=== PATIENT | male | born 1945 | race Caucasian/White ===

== ENCOUNTER 2017-05-13 13:09 | Emergency (ER) | payer MEDICARE, OTHER ==
[2017-05-13 13:59] LABS: Bilirubin Negative (Negative); Blood, Urine Negative (Negative); Clarity Cloudy (Clear); Glucose, Urine (Dipstick) Negative (Negative); Leukocyte Moderate (Negative); Nitrite Negative (Negative); Protein, Urine (Dipstick) Trace mg/dL (Neg-Trace); pH, Urine 6.5 (5.0-9.0)
[2017-05-13 14:04] LABS: #Basophils 0.1 thou/uL (0.0-0.2); #Eosinphils 0.1 thou/uL (0.0-0.7); #Monocytes 0.7 thou/uL (0.11-0.59); #Neutrophils 6.1 thou/uL (1.40-6.50); %Basophils 0.9 % (0.0-1.0); %Eosinophils 1.1 % (0.0-10.0); %Lymphocytes 13.1 % (21.0-51.0); %Monocytes 8.5 % (0.0-10.0); %Neutrophils 76.5 % (42.0-75.0); Hemoglobin 16.1 g/dL (14.0-18.0); Mean Corpuscular HGB CONC 36.4 g/dL (32.0-36.0); Mean Corpuscular Hemoglobin 31.7 pg (27.0-31.0); Mean Corpuscular Volume 87.1 fl (80.0-94.0); Mean Platelet Volume 8.6 fL (7.4-10.4); Platelet Count 230 thou/uL (130-400); RBC Distribution Width 12.3 % (11.5-14.5); Red Blood Cell (RBC) Count 5.09 mill/uL (4.70-6.10)
[2017-05-13 14:09] LABS: ALT (SGPT) 19 U/L (8-55); AST (SGOT) 15 U/L (5-34); Albumin 4.2 g/dL (3.4-4.8); Anion Gap 12 mmol/L (10-20); BUN (Urea Nitrogen) 27 mg/dL (8.4-25.7); Bilirubin, Total 0.7 mg/dL (0.2-1.2); Calc. Creatinine Clearance 0 mL/min (70-130); Calcium 10.6 mg/dL (7.8-10.44); Carbon Dioxide 28 mmol/L (23-31); Chloride 105 mmol/L (98-107); Estimated GFR-MDRD Greater than 90; Globulin 2.7 g/dL (2.4-3.5); Glucose 162 mg/dL (83-110); Lipase 15 U/L (8-78); Potassium 4.3 mmol/L (3.5-5.1); Protein, Total 6.9 g/dL (5.8-8.1); Sodium 141 mmol/L (136-145)
[2017-05-13 14:11] LABS: Bacteria/HPF 1+ HPF (None Seen); Crystals/HPF 3+ AMORPH URATES HPF (Negative); RBC/HPF None Seen HPF (0-3); Squamous Epithelial 0-3 HPF (0-3); WBC/HPF 21-50 HPF (0-3)
[2017-05-13 14:13] LABS: Alkaline Phosphatase 106 U/L (40-150)
== END 2017-05-13 15:24 | disposition home or self-care (01) ==
LOC: BURERS 13:09
DX: N39.0 Urinary tract infection, site not specified (principal); R10.13 Epigastric pain; I25.10 Atherosclerotic heart disease of native coronary artery without angina pectoris; I25.2 Old myocardial infarction; E11.9 Type 2 diabetes mellitus without complications; E03.9 Hypothyroidism, unspecified; E78.5 Hyperlipidemia, unspecified; I10 Essential (primary) hypertension; Z79.84 Long term (current) use of oral hypoglycemic drugs; Z79.891 Long term (current) use of opiate analgesic; Z79.899 Other long term (current) drug therapy
CPT/HCPCS: 80053; 81003; 81015; 83690; 85025; 99283

== ENCOUNTER 2018-04-28 10:59 | Emergency (ER) | payer MEDICARE, OTHER ==
[2018-04-28 11:52] LABS: #Basophils 0.2 thou/uL (0.0-0.2); #Eosinphils 0.1 thou/uL (0.0-0.7); #Lymphocytes 3.8 thou/uL (1.20-3.40); #Monocytes 0.3 thou/uL (0.11-0.59); #Neutrophils 4.8 thou/uL (1.40-6.50); %Basophils 1.8 % (0.0-1.0); %Eosinophils 1.2 % (0.0-10.0); %Lymphocytes 41.7 % (21.0-51.0); %Monocytes 2.9 % (0.0-10.0); %Neutrophils 52.5 % (42.0-75.0); Hemoglobin 16.7 g/dL (14.0-18.0); Mean Corpuscular HGB CONC 33.7 g/dL (32.0-36.0); Mean Corpuscular Hemoglobin 29.9 pg (27.0-31.0); Mean Corpuscular Volume 88.8 fL (78.0-98.0); Mean Platelet Volume 7.2 fL (7.4-10.4); Platelet Count 245 thou/uL (130-400); RBC Distribution Width 13.2 % (11.5-14.5); Red Blood Cell (RBC) Count 5.57 mill/uL (4.70-6.10); White Blood Cell (WBC) Count 9.1 thou/uL (4.8-10.8)
[2018-04-28 12:09] LABS: ALT (SGPT) 11 U/L (8-55); AST (SGOT) 15 U/L (5-34); Albumin 4.2 g/dL (3.4-4.8); Alkaline Phosphatase 128 U/L (40-150); Anion Gap 15 mmol/L (10-20); BUN (Urea Nitrogen) 27 mg/dL (8.4-25.7); Bilirubin, Total 0.9 mg/dL (0.2-1.2); Calc. Creatinine Clearance 0 mL/min (70-130); Calcium 9.7 mg/dL (7.8-10.44); Carbon Dioxide 23 mmol/L (23-31); Chloride 106 mmol/L (98-107); Estimated GFR-MDRD Greater than 90; Glucose 134 mg/dL (83-110); Potassium 4.2 mmol/L (3.5-5.1); Protein, Total 7.2 g/dL (5.8-8.1); Sodium 140 mmol/L (136-145)
[2018-04-28] MEDS ORDERED: methylPREDNISolone Sod Succ/PF 125 MG/2 ML VIAL ONE (12:19)
[2018-04-28] MEDS ORDERED: Albuterol Sulfate 1.25 MG/3 ML NEB ONE (12:19)
[2018-04-28] MEDS ORDERED: Sodium Chloride 0.9% 100 ML ONE (12:33)
[2018-04-28] MEDS ORDERED: cefTRIAXone\\ROCEPHIN 1 GM VIAL ONE (12:33)
[2018-04-28] MEDS ORDERED: Albuterol Sulfate 2.5 mg/3 ml Neb ONE (12:54)
[2018-04-28] MEDS ORDERED: Azithromycin 250 MG TAB ONE (13:15)
--- NOTE | 2018-04-28 21:32 | RAD ---
CHEST TWO VIEWS: 04/28/18 No prior films were available for comparison. Pleural fluid is present on at least the right and poss ibly the left. Some fluid is seen in the fissures. A linear streak from the left hilum is probably sc arring. There is some increased density in the right base medially. I cannot exclude an infiltrate he re. The heart size is normal. median sternotomy sutures are seen from prior surgery. There is no vasc ular congestion or edema. Old films would be helpful for comparison. IMPRESSION: 1. Pleural effusions, particularly on the right. 2. Possible right basilar infiltrate. POS: HOME
== END 2018-04-28 13:20 | disposition home or self-care (01) ==
LOC: BURERS 10:59
DX: J20.9 Acute bronchitis, unspecified (principal); I25.10 Atherosclerotic heart disease of native coronary artery without angina pectoris; I25.2 Old myocardial infarction; E11.9 Type 2 diabetes mellitus without complications; E03.9 Hypothyroidism, unspecified; E78.5 Hyperlipidemia, unspecified; I10 Essential (primary) hypertension; Z79.899 Other long term (current) drug therapy; Z79.84 Long term (current) use of oral hypoglycemic drugs
CPT/HCPCS: 36415; 71046; 80053; 83605; 83880; 84484; 85025; 87040; 93005; 94640; 94760; 96365; 96375; J0696; J2930; J7050; J7611; J7620

== ENCOUNTER 2019-03-01 14:09 | Inpatient (IN) | payer MEDICARE, OTHER ==
[2019-03-01] MEDS ORDERED: HYDROcodone/Acetaminophen 5/325 mg Tablet PO PRN (22:05)
[2019-03-01] MEDS ORDERED: Gabapentin 300 MG CAP PO PRN (22:05)
[2019-03-01] MEDS ORDERED: Dextrose 50% Abboject 50 ML SYRINGE SLOW IVP PRN (22:17)
[2019-03-01] MEDS ORDERED: Dextrose 5% in Water 1,000 ML IV PRN (22:17)
[2019-03-02 05:59] LABS: ALT (SGPT) 17 U/L (8-55); AST (SGOT) 12 U/L (5-34); Albumin 2.5 g/dL (3.4-4.8); Alkaline Phosphatase 109 U/L (40-110); Anion Gap 12 mmol/L (10-20); BUN (Urea Nitrogen) 39 mg/dL (8.4-25.7); Bilirubin, Total 0.7 mg/dL (0.2-1.2); Calc. Creatinine Clearance 0 mL/min (70-130); Calcium 10.9 mg/dL (7.8-10.44); Carbon Dioxide 28 mmol/L (23-31); Chloride 102 mmol/L (98-107); Estimated GFR-MDRD 61; Globulin 1.5 g/dL (2.4-3.5); Glucose 126 mg/dL (83-110); Potassium 4.3 mmol/L (3.5-5.1); Sodium 138 mmol/L (136-145)
[2019-03-02 06:07] LABS: Mean Corpuscular HGB CONC 32.6 g/dL (32.0-36.0); Mean Corpuscular Hemoglobin 28.9 pg (27.0-31.0); Mean Corpuscular Volume 88.7 fL (78.0-98.0); Mean Platelet Volume 11.4 fL (7.4-10.4); Platelet Count 96 thou/uL (130-400); RBC Distribution Width 15.6 % (11.5-14.5); Red Blood Cell (RBC) Count 3.45 mill/uL (4.70-6.10); White Blood Cell (WBC) Count 2.3 thou/uL (4.8-10.8)
[2019-03-02 06:15] LABS: Manual Diff?? YES
[2019-03-02 06:16] LABS: Anisocytosis SLIGHT = 6-15 cells (100X) (0-5/hpf); Band 9 % (5-11); Eosinophils 1 % (0-10); Hypochromia SLIGHT = 6-15 cells (100X) (0-5/hpf); Large Platelets SLIGHT; Lymphocytes 28 % (21-51); Monocytes 5 % (0-10); Neutrophil 56 % (42-75); Platelet Morphology Comment Appears Decreased
[2019-03-02 06:17] LABS: MDiff Complete? YES
[2019-03-02] MEDS: Floranex Packet PO SCH ×3 (08:43→17:36)
[2019-03-02] MEDS: Fluconazole 100 MG TAB PO SCH (08:43)
[2019-03-02] MEDS: Docusate 100 MG CAP PO SCH ×2 (08:44→23:19)
[2019-03-02] MEDS: Gabapentin 300 MG CAP PO SCH ×3 (08:44→23:19)
[2019-03-02] MEDS: Potassium Chloride 10 MEQ TAB PO SCH (08:46)
[2019-03-02] MEDS ORDERED: AMPHOTERICIN B 50 MG IV SCH (09:00)
[2019-03-02] MEDS ORDERED: Prevnar 13-Val Conj/PF 0.5 ML SYRINGE IM ONE (09:00)
[2019-03-02] MEDS: HumaLOG 300 UNITS/3 ML VIAL SC PRN (12:49)
[2019-03-02] MEDS: DEXTROSE 5% IVPB SCH (13:54)
[2019-03-02] MEDS: WATER IVPB SCH (13:54)
[2019-03-02] MEDS: AMBISOME IVPB SCH (13:54)
[2019-03-02] MEDS ORDERED: Admixture Fee 1 EACH in Dextrose 5% in Water 10 ML FS SCH (14:00)
[2019-03-02] MEDS ORDERED: Ibrutinib [Imbruvica] 420 MG PO SCH (16:00)
[2019-03-02] MEDS: metFORMIN 500 MG TAB PO SCH (17:36)
--- NOTE | 2019-03-03 03:03 | HP ---
CHIEF COMPLAINT: Need for IV antifungal treatment and physical and occupational therapy for generalized weakness. HISTORY OF PRESENT ILLNESS: Mr. Yancey is a 73-year-old male with a history of hypertension, type 2 diabetes, and non-Hodgkin's lymphoma and has been on ibrutinib, followed by Dr. Padron with Oncology in [place], chronic leukopenia, chronic kidney disease stage 3, anemia of chronic disease, and recent enterococcus iliopsoas abscess that was treated with ampicillin at a senior living facility, apparently [facility] per history and then readmitted on February 18 with worsening shortness of breath, hypoxia, chronic dysphagia. He was found with healthcare acquired pneumonia, a large left pleural effusion, hypoxic respiratory failure, and a distal esophageal ring. He also had cryptococcus fungemia. He was evaluated by Dr. jOeda with Infectious Disease for assistance with management and subsequently underwent a thoracentesis with removal of 1.5 L of straw-colored fluid on February 19 for the pleural effusion. GI evaluated the patient while there and performed an EGD with esophageal dilation on February 22. He had an 8 day course of meropenem in-house. He was recommended antifungal consisting of AmBisome [address] Ojeda for approximately 9 days. He has been transferred here to continue that treatment as well as physical and occupational therapy. Before the iliopsoas abscess, he apparently lived independently in his home. It presented with worsening back pain. IR was unable to drain it successfully. After at [facility], he apparently wasn't walking but when he finally did get up to stand, he suffered a fall. This prompted the readmission back to [facility] February 18 through March 01 and found to have fungemia. PAST MEDICAL HISTORY: 1. Fungemia, specifically cryptococcus. 2. Iliopsoas abscess, penicillin sensitive enterococcus, status post aspiration, January 25, 2019, treated with ampicillin. 3. Non-Hodgkin's lymphoma, followed by Dr. Padron in [place] on ibrutinib. 4. Type 2 diabetes. 5. Hypertension.. 6. Healthcare-associated pneumonia. 7. Anemia of chronic disease. 8. Left pleural effusion status post thoracentesis, February 19. Apparently recurrent and had lung drained about a year ago as well. 9. Acute respiratory failure with hypoxia. 10. Acute kidney injury on chronic kidney disease stage 3. 11. Dysphagia status post dilation of distal esophageal ring. 12. Back pain. 13. Sinus bradycardia. PAST SURGICAL HISTORY: 1. Interventional radiology, biopsy deep bone January 23, 2019. 2. Interventional radiology thoracentesis with imaging left February 19, 2019. 3. EGD with esophageal dilation February 22, 2019. ALLERGIES: SULFA. SOCIAL HISTORY: The patient is single. He is a [place] . Prior to his admission to [facility] last month, the patient lived at home independently. He has never smoked and does not drink alcohol or use illicit drugs. FAMILY HISTORY: Non-pertinent. MEDICATIONS: 1. Amphotericin 350 mg IV daily for 9 days. 2. Fluconazole 200 mg four tablets to equal 100 mg daily for 10 days, then two tablets to equal 400 mg total daily and then after eight weeks, we will decrease to 200 mg daily indefinitely for at least 1 year per Infectious Disease. 3. Lactobacillus acidophilus L. Bulgar 100 million cell granules or Floranex 1 packet by mouth 3 times daily with meals for seven days. 4. Pantoprazole 40 mg daily. 5. Acetaminophen 500 mg two p.o. q.6 hours p.r.n. pain. 6. Docusate sodium 100 mg p.o. b.i.d. 7. Gabapentin 300 mg p.o. t.i.d. with an additional 300 mg p.o. t.i.d. p.r.n. 8. Hydrocodone 5/325 two p.o. q.8 hours p.r.n. pain. 9. Metformin 500 mg p.o. q.p.m. with evening meal. 10. Ondansetron 4 mg tablet p.o. q.6 hours p.r.n. nausea. 11. Potassium chloride 10 mEq p.o. daily. 12. Amlodipine 10 mg p.o. daily. REVIEW OF SYSTEMS: A complete 10 system review unable to be performed secondary to the patient's somnolent state at the time of assessment. PHYSICAL EXAMINATION: VITAL SIGNS: Temperature 97.1, pulse 69, respirations 18, O2 saturation 100% on 3 L per nasal cannula, blood pressure 113/58. GENERAL: Well-developed, thin, cachectic-appearing male, who is in no distress. He is supine lying in bed, asleep. I was unable to arouse him more than to mumble softly. Per staff, he was awake and had long therapy sessions today. HEENT: Normocephalic, atraumatic. Pupils equally round and reactive to light and accommodation. Extraocular movements cannot be addressed. Nares are patent without discharge. Poor dentition. NECK: Supple without lymphadenopathy, thyromegaly, JVD, or bruit. HEART: Regular rate and rhythm with normal S1, S2, 2/6 systolic ejection murmur best heard at the left lower sternal border without radiation. ABDOMEN: Positive bowel sounds in all four quadrants. Soft, nontender, nondistended. No masses, guarding, or rebound tenderness. RESPIRATORY: Diminished breath sounds in left lower lobe. No crackles or wheezes. EXTREMITIES: No cyanosis, clubbing, or edema, but atrophic. NEUROLOGIC: Cranial nerves 2 through 12 grossly intact without focal deficits, but notice generalized atrophy and weakness. SKIN: The patient has some well-defined scabbed over around sores to the anterior tibias bilaterally without surrounding erythema or induration. He also appears to have a median sternotomy scar, which does not correspond to the surgical history that I obtained. We will ask family members for clarification. LABORATORY DATA: White count on February 25 2.1, hemoglobin 9, hematocrit 28.4, platelets 165. Sodium 136 on February 27, potassium 4.5, chloride 101, bicarb 31, BUN 44, creatinine 1.33, glucose 126, magnesium 2, calcium 10.5. IMAGIN. The patient had a CT head without contrast on February 18 that showed no acute intracranial abnormality. 2. CT chest without contrast the same day showed acute right lower lobe pneumonia and associated small right pleural effusion and large left pleural effusion with complete left lower lobe collapse/atelectasis. 3. Repeat chest x-ray, February 22 shows small left pleural effusion, decreased since prior study, trace right pleural effusion. Pulmonary vascular congestion. Bibasilar atelectatic changes. 4. X-ray guided fluoroscopy of the esophagus on February 21 showed limited exam without obvious esophageal narrowing or filling defect. Presbyesophagus is noted. 5. CT abdomen and pelvis with contrast February 18 showed a slightly smaller right psoas muscle abscess. ASSESSMENT AND PLAN: 1. Fungemia with cryptococcal bacteremia. The patient has been placed on amphotericin and fluconazole as directed. The amphotericin will be discontinued after 9 days of therapy. The fluconazole dose will be decreased as instructed after 10 days and then again after four weeks per Dr. Ojeda's recommendations. He will be on the fluconazole indefinitely for at least a year with him following outpatient. He is also on probiotic. 2. Healthcare associated pneumonia. The patient has completed meropenem therapy and vancomycin. His most recent chest x-ray showed improvement. 3. Left pleural effusion, status post thoracentesis. Per [facility] records, it appeared to be exudative based on protein ratio greater than 0.5 and a gram- stain culture was unremarkable with an improvement in the chest x-ray post procedure. We will monitor his respiratory status. 4. Dysphagia. The patient has taken very little by mouth while hospitalized here. He did have a speech therapy, bedside swallow examination on February 22 after having the EGD revealing a lower esophageal ring and hiatal hernia. They recommended dysphagia 3 soft and bite size diet and thin liquids, upright at 90 degrees for p.o. intake and remaining upright at least 30 minutes after meals with esophageal dysphagia precautions then include a slick diet, alternating solids and liquids with six smaller more frequent meals with food cut into bite size pieces and to be moistened with juice or gravy, etc. with distant supervision with meals checking outpatient 2-3 times per meal. However, the patient had no appetite today and I will start him on an appetite stimulant. ST eval and treat. 5. Iliopsoas abscess. This was found during his previous admission and was unable to be drained by interventional Radiology. He was on ampicillin via PICC line at the residential, which was planned through March 01 and has appropriately been treated prior to his transfer here. We will control his pain with [place] and gabapentin to the low back. 6. Non-Hodgkin's lymphoma. We spoke with Dr. Ojeda today, who clarified that the patient is to be continued on his ibrutinib, which will be monitored with outpatient oncology, Dr. Padron. We will closely watch his platelet count. 7. Type 2 diabetes. Currently, he is on metformin and we have placed him on Accu-Cheks before meal and at bedtime with hyperglycemia protocol with lispro, mild and bedtime algorithms. 8. Hypertension. The patient is currently on amlodipine. He was previously on lisinopril, but this is being held. We will monitor his blood pressure and treat accordingly. 9. Acute respiratory failure with hypoxia. The patient is currently on 3 L and tolerating well. We will wean as tolerated further. 10. Anemia of chronic disease. We will monitor the patient's hemoglobin during his stay. 11. Qibbf-st-vubiigg kidney disease, stage 3. The lisinopril was on hold due to this and it has resolved. We will monitor closely. 12. Skin lesions. These appear suspicious for paraneoplastic syndrome. Consider punch biopsy. We have ordered wound care in the SS[facility] today and reported that he has no current wound care needs, but nursing will monitor. 13. Hiatal hernia. The patient is currently on prophylactic proton pump inhibitor. 14. Prophylaxis. We will perform this mechanically given that his platelet count is diminished. 15. Code status. The patient is currently full code with his cousin, Nadeem Gasca , his main decision maker. Job ID: [id number] MTDD
[2019-03-03] MEDS: Docusate 100 MG CAP PO SCH ×2 (08:45→20:47)
[2019-03-03] MEDS: Megestrol Acetate 400 MG/10 ML UDCUP PO SCH (08:45)
[2019-03-03] MEDS: Potassium Chloride 10 MEQ TAB PO SCH (08:45)
[2019-03-03] MEDS: Fluconazole 100 MG TAB PO SCH (08:46)
[2019-03-03] MEDS: Gabapentin 300 MG CAP PO SCH ×3 (08:46→20:40)
[2019-03-03] MEDS: Floranex Packet PO SCH ×3 (08:47→17:02)
[2019-03-03] MEDS: Ibrutinib [Imbruvica] 420 MG PO SCH ×2 (08:48→16:59)
[2019-03-03] MEDS ORDERED: Admixture Fee 1 EACH in Dextrose 5% in Water 10 ML FS SCH (09:00)
[2019-03-03] MEDS ORDERED: AMPHOTERICIN B IV SCH (09:00)
[2019-03-03] MEDS: HYDROcodone/Acetaminophen 10/325 mg Tablet PO PRN (10:39)
[2019-03-03 14:11] VITALS: BMI 19.8
[2019-03-03] MEDS: Admixture Fee 1 EACH in Dextrose 5% in Water 10 ML FS SCH ×3 (14:59→15:15)
[2019-03-03] MEDS: WATER IVPB SCH (14:59)
[2019-03-03] MEDS: AMBISOME IVPB SCH (14:59)
[2019-03-03] MEDS: DEXTROSE 5% IVPB SCH (14:59)
[2019-03-03] MEDS: metFORMIN 500 MG TAB PO SCH (17:00)
[2019-03-03] MEDS: HumaLOG 300 UNITS/3 ML VIAL SC PRN (18:30)
[2019-03-04] MEDS: Fluconazole 100 MG TAB PO SCH (09:13)
[2019-03-04] MEDS: Megestrol Acetate 400 MG/10 ML UDCUP PO SCH (09:13)
[2019-03-04] MEDS: Potassium Chloride 10 MEQ TAB PO SCH (09:15)
[2019-03-04] MEDS: Floranex Packet PO SCH ×3 (09:15→16:48)
[2019-03-04] MEDS: Gabapentin 300 MG CAP PO SCH ×3 (09:15→21:17)
[2019-03-04] MEDS: Docusate 100 MG CAP PO SCH ×2 (09:15→21:17)
[2019-03-04] MEDS: HYDROcodone/Acetaminophen 10/325 mg Tablet PO PRN (10:10)
[2019-03-04] MEDS: Admixture Fee 1 EACH in Dextrose 5% in Water 10 ML FS SCH ×2 (14:19→16:47)
[2019-03-04] MEDS: AMBISOME IVPB SCH (14:21)
[2019-03-04] MEDS: DEXTROSE 5% IVPB SCH (14:21)
[2019-03-04] MEDS: WATER IVPB SCH (14:21)
[2019-03-04] MEDS: metFORMIN 500 MG TAB PO SCH (16:48)
[2019-03-04] MEDS ORDERED: HYDROcodone/Acetaminophen 5/325 mg Tablet PO PRN ×2 (18:48)
[2019-03-05 06:07] LABS: ALT (SGPT) 10 U/L (8-55); AST (SGOT) 13 U/L (5-34); Albumin 2.6 g/dL (3.4-4.8); Alkaline Phosphatase 93 U/L (40-110); Anion Gap 13 mmol/L (10-20); BUN (Urea Nitrogen) 43 mg/dL (8.4-25.7); Bilirubin, Total 0.6 mg/dL (0.2-1.2); Calc. Creatinine Clearance 44 mL/min (70-130); Calcium 11.5 mg/dL (7.8-10.44); Carbon Dioxide 29 mmol/L (23-31); Chloride 102 mmol/L (98-107); Estimated GFR-MDRD 47; Globulin 1.6 g/dL (2.4-3.5); Glucose 106 mg/dL (83-110); Potassium 4.6 mmol/L (3.5-5.1); Protein, Total 4.2 g/dL (5.8-8.1); Sodium 139 mmol/L (136-145)
[2019-03-05 06:44] LABS: Anisocytosis SLIGHT = 6-15 cells (100X) (0-5/hpf); Band 2 % (5-11); Hemoglobin 9.9 g/dL (14.0-18.0); Lymphocytes 23 % (21-51); MDiff Complete? YES; Mean Corpuscular HGB CONC 32.7 g/dL (32.0-36.0); Mean Platelet Volume 9.9 fL (7.4-10.4); Monocytes 2 % (0-10); Neutrophil 73 % (42-75); Platelet Count 91 thou/uL (130-400); Platelet Morphology Comment Appears Decreased; RBC Distribution Width 15.8 % (11.5-14.5); Red Blood Cell (RBC) Count 3.59 mill/uL (4.70-6.10); White Blood Cell (WBC) Count 2.9 thou/uL (4.8-10.8)
[2019-03-05] MEDS: Fluconazole 100 MG TAB PO SCH (10:05)
[2019-03-05] MEDS: Megestrol Acetate 400 MG/10 ML UDCUP PO SCH (10:05)
[2019-03-05] MEDS: Gabapentin 300 MG CAP PO SCH ×2 (10:06→13:50)
[2019-03-05] MEDS: Potassium Chloride 10 MEQ TAB PO SCH (10:06)
[2019-03-05] MEDS: Floranex Packet PO SCH ×3 (10:07→17:55)
[2019-03-05] MEDS: Docusate 100 MG CAP PO SCH ×2 (10:07→20:17)
[2019-03-05] MEDS: Ibrutinib [Imbruvica] 420 MG PO SCH (10:11)
[2019-03-05 13:12] LABS: HIV (1/2) Antibody/Antigen Non-Reactive (NonReactive); HIV 1/2 INDEX 0.06 S/CO (<1.00)
[2019-03-05] MEDS: DEXTROSE 5% IVPB SCH (14:03)
[2019-03-05] MEDS: AMBISOME IVPB SCH (14:03)
[2019-03-05] MEDS: WATER IVPB SCH (14:03)
[2019-03-05] MEDS: Admixture Fee 1 EACH in Dextrose 5% in Water 10 ML FS SCH ×2 (14:04→14:05)
[2019-03-05] MEDS: Dextrose 5 %-0.45 % NaCl 1,000 ML IV SCH (16:52)
--- NOTE | 2019-03-05 17:03 | RAD ---
PORTABLE CHEST: 03/05/19 Comparison is made with a prior study of 07/11/18. There is extensive infiltrate and effusion in the left lower lobe. Pneumonia is presumed. There is a lso a lesser amount of infiltrate and smaller amount of fluid in the right lung base that is presumed to be the same process. The upper lobes are clear. The heart is mildly enlarged but no more so than before. IMPRESSION: Extensive left lower lobe infiltrate and effusion. Small right lower lobe infiltrate and effusion. Temporary report placed on PACS and tech to take to floor at 1529 on 03/05/2019. POS: HOME
[2019-03-05] MEDS: metFORMIN 500 MG TAB PO SCH (17:55)
[2019-03-06] MEDS: Dextrose 5 %-0.45 % NaCl 1,000 ML IV SCH ×4 (01:15→21:02)
[2019-03-06 06:54] LABS: Anion Gap 12 mmol/L (10-20); BUN (Urea Nitrogen) 46 mg/dL (8.4-25.7); Calc. Creatinine Clearance 37 mL/min (70-130); Calcium 10.7 mg/dL (7.8-10.44); Carbon Dioxide 30 mmol/L (23-31); Chloride 101 mmol/L (98-107); Estimated GFR-MDRD 39; Glucose 140 mg/dL (83-110); Potassium 4.8 mmol/L (3.5-5.1); Sodium 138 mmol/L (136-145)
[2019-03-06 07:20] LABS: Band 9 % (5-11); Eosinophils 2 % (0-10); Lymphocytes 24 % (21-51); MDiff Complete? YES; Mean Corpuscular HGB CONC 32.2 g/dL (32.0-36.0); Mean Corpuscular Hemoglobin 28.6 pg (27.0-31.0); Mean Corpuscular Volume 88.8 fL (78.0-98.0); Mean Platelet Volume 11.2 fL (7.4-10.4); Monocytes 4 % (0-10); Neutrophil 61 % (42-75); Platelet Count 84 thou/uL (130-400); RBC Distribution Width 15.3 % (11.5-14.5); Red Blood Cell (RBC) Count 3.16 mill/uL (4.70-6.10); White Blood Cell (WBC) Count 2.4 thou/uL (4.8-10.8)
[2019-03-06] MEDS: Fluconazole 100 MG TAB PO SCH (11:18)
[2019-03-06] MEDS: Megestrol Acetate 400 MG/10 ML UDCUP PO SCH (11:18)
[2019-03-06] MEDS: Docusate 100 MG CAP PO SCH ×2 (11:19→20:47)
[2019-03-06] MEDS: Floranex Packet PO SCH ×3 (11:19→16:29)
[2019-03-06] MEDS: Potassium Chloride 10 MEQ TAB PO SCH (11:19)
[2019-03-06] MEDS: Ibrutinib [Imbruvica] 420 MG PO SCH (11:20)
[2019-03-06] MEDS: AMBISOME IVPB SCH (13:49)
[2019-03-06] MEDS: WATER IVPB SCH (13:49)
[2019-03-06] MEDS: DEXTROSE 5% IVPB SCH (13:49)
[2019-03-06] MEDS: Admixture Fee 1 EACH in Dextrose 5% in Water 10 ML FS SCH ×3 (13:50→16:28)
[2019-03-06] MEDS: HumaLOG 300 UNITS/3 ML VIAL SC PRN (14:20)
[2019-03-06] MEDS: metFORMIN 500 MG TAB PO SCH (16:29)
[2019-03-06] MEDS: Acetaminophen 500 MG TAB PO PRN (16:29)
[2019-03-07] MEDS: Dextrose 5 %-0.45 % NaCl 1,000 ML IV SCH ×2 (07:47→16:26)
[2019-03-07] MEDS: Fluconazole 100 MG TAB PO SCH (10:34)
[2019-03-07] MEDS: Potassium Chloride 10 MEQ TAB PO SCH (10:34)
[2019-03-07] MEDS: Docusate 100 MG CAP PO SCH ×2 (10:35→20:42)
[2019-03-07] MEDS: Megestrol Acetate 400 MG/10 ML UDCUP PO SCH (10:35)
[2019-03-07] MEDS: Floranex Packet PO SCH ×3 (10:35→16:31)
[2019-03-07] MEDS: Acetaminophen 500 MG TAB PO PRN ×2 (10:38→16:38)
[2019-03-07] MEDS: Ibrutinib [Imbruvica] 420 MG PO SCH (11:02)
[2019-03-07] MEDS: AMBISOME IVPB SCH (13:53)
[2019-03-07] MEDS: WATER IVPB SCH (13:53)
[2019-03-07] MEDS: DEXTROSE 5% IVPB SCH (13:53)
[2019-03-07] MEDS: Admixture Fee 1 EACH in Dextrose 5% in Water 10 ML FS SCH ×2 (13:55)
[2019-03-07] MEDS: metFORMIN 500 MG TAB PO SCH (16:31)
[2019-03-07] MEDS: HumaLOG 300 UNITS/3 ML VIAL SC PRN (18:56)
[2019-03-08] MEDS: Dextrose 5 %-0.45 % NaCl 1,000 ML IV SCH ×2 (02:38→17:00)
[2019-03-08] MEDS: Fluconazole 100 MG TAB PO SCH (09:09)
[2019-03-08] MEDS: Megestrol Acetate 400 MG/10 ML UDCUP PO SCH (09:09)
[2019-03-08] MEDS: Docusate 100 MG CAP PO SCH ×2 (09:11→20:46)
[2019-03-08] MEDS: Floranex Packet PO SCH ×3 (09:11→17:36)
[2019-03-08] MEDS: Potassium Chloride 10 MEQ TAB PO SCH (09:11)
[2019-03-08] MEDS: Ibrutinib [Imbruvica] 420 MG PO SCH (09:13)
[2019-03-08] MEDS: Acetaminophen 500 MG TAB PO PRN (16:06)
[2019-03-08] MEDS: Admixture Fee 1 EACH in Dextrose 5% in Water 10 ML FS SCH ×3 (16:42→20:42)
[2019-03-08] MEDS: WATER IVPB SCH (16:44)
[2019-03-08] MEDS: AMBISOME IVPB SCH (16:44)
[2019-03-08] MEDS: DEXTROSE 5% IVPB SCH (16:44)
[2019-03-08] MEDS: metFORMIN 500 MG TAB PO SCH (17:34)
[2019-03-09] MEDS: Dextrose 5 %-0.45 % NaCl 1,000 ML IV SCH ×3 (00:25→21:09)
[2019-03-09] MEDS: Ondansetron ODT 4 MG TAB PO PRN (06:20)
[2019-03-09] MEDS: Floranex Packet PO SCH ×3 (09:08→16:24)
[2019-03-09] MEDS: Acetaminophen 500 MG TAB PO PRN (09:09)
[2019-03-09] MEDS: Docusate 100 MG CAP PO SCH ×2 (09:09→21:08)
[2019-03-09] MEDS: Fluconazole 100 MG TAB PO SCH (09:09)
[2019-03-09] MEDS: Potassium Chloride 10 MEQ TAB PO SCH (09:09)
[2019-03-09] MEDS: Ibrutinib [Imbruvica] 420 MG PO SCH (09:17)
[2019-03-09] MEDS: Megestrol Acetate 400 MG/10 ML UDCUP PO SCH (09:19)
[2019-03-09] MEDS: Admixture Fee 1 EACH in Dextrose 5% in Water 10 ML FS SCH ×2 (14:09→16:25)
[2019-03-09] MEDS: DEXTROSE 5% IVPB SCH (14:44)
[2019-03-09] MEDS: AMBISOME IVPB SCH (14:44)
[2019-03-09] MEDS: WATER IVPB SCH (14:44)
[2019-03-09] MEDS: metFORMIN 500 MG TAB PO SCH (16:22)
[2019-03-09] MEDS: traMADol HCl 50 MG TAB PO PRN (16:22)
[2019-03-10] MEDS: traMADol HCl 50 MG TAB PO PRN ×3 (01:12→20:49)
[2019-03-10 05:38] LABS: Anion Gap 12 mmol/L (10-20); BUN (Urea Nitrogen) 33 mg/dL (8.4-25.7); Calc. Creatinine Clearance 40 mL/min (70-130); Carbon Dioxide 24 mmol/L (23-31); Chloride 101 mmol/L (98-107); Estimated GFR-MDRD 42; Glucose 90 mg/dL (83-110); Potassium 4.1 mmol/L (3.5-5.1); Sodium 133 mmol/L (136-145)
[2019-03-10 06:00] LABS: Anisocytosis SLIGHT = 6-15 cells (100X) (0-5/hpf); Eosinophils 3 % (0-10); Hemoglobin 9.2 g/dL (14.0-18.0); Lymphocytes 29 % (21-51); MDiff Complete? YES; Mean Corpuscular HGB CONC 32.8 g/dL (32.0-36.0); Mean Corpuscular Hemoglobin 28.8 pg (27.0-31.0); Mean Corpuscular Volume 87.8 fL (78.0-98.0); Mean Platelet Volume 11.7 fL (7.4-10.4); Monocytes 4 % (0-10); Neutrophil 53 % (42-75); Platelet Count 49 thou/uL (130-400); Platelet Morphology Comment Appears Adequate; RBC Distribution Width 15.7 % (11.5-14.5); Reactive Lymphocytes 9 % (0-10); Red Blood Cell (RBC) Count 3.34 mill/uL (4.70-6.10); White Blood Cell (WBC) Count 2.6 thou/uL (4.8-10.8)
[2019-03-10] MEDS: Dextrose 5 %-0.45 % NaCl 1,000 ML IV SCH ×3 (06:21→22:35)
[2019-03-10] MEDS: Megestrol Acetate 400 MG/10 ML UDCUP PO SCH (09:10)
[2019-03-10] MEDS: Floranex Packet PO SCH ×3 (09:10→17:55)
[2019-03-10] MEDS: Fluconazole 100 MG TAB PO SCH (09:11)
[2019-03-10] MEDS: Docusate 100 MG CAP PO SCH ×2 (09:13→20:51)
[2019-03-10] MEDS: Ibrutinib [Imbruvica] 420 MG PO SCH (09:16)
[2019-03-10] MEDS: Potassium Chloride 10 MEQ TAB PO SCH (09:16)
[2019-03-10] MEDS: Ondansetron ODT 4 MG TAB PO PRN ×2 (12:28→18:24)
[2019-03-10] MEDS: DEXTROSE 5% IVPB SCH (14:19)
[2019-03-10] MEDS: WATER IVPB SCH (14:19)
[2019-03-10] MEDS: AMBISOME IVPB SCH (14:19)
[2019-03-10] MEDS: Admixture Fee 1 EACH in Dextrose 5% in Water 10 ML FS SCH ×2 (14:20→14:22)
[2019-03-10] MEDS: metFORMIN 500 MG TAB PO SCH (17:55)
[2019-03-11] MEDS: Dextrose 5 %-0.45 % NaCl 1,000 ML IV SCH ×2 (08:52→19:24)
[2019-03-11] MEDS: Fluconazole 100 MG TAB PO SCH (08:56)
[2019-03-11] MEDS: traMADol HCl 50 MG TAB PO PRN ×2 (10:16→21:32)
[2019-03-11] MEDS: Potassium Chloride 10 MEQ TAB PO SCH (12:02)
[2019-03-11] MEDS: Docusate 100 MG CAP PO SCH ×2 (12:02→21:12)
[2019-03-11] MEDS: Megestrol Acetate 400 MG/10 ML UDCUP PO SCH (12:04)
[2019-03-11] MEDS: Floranex Packet PO SCH ×2 (12:11→12:12)
[2019-03-11] MEDS: metFORMIN 500 MG TAB PO SCH (17:52)
[2019-03-11] MEDS: Saccharomyces boulardii 250 MG CAP PO SCH (21:12)
[2019-03-11] MEDS: Ondansetron ODT 4 MG TAB PO PRN (23:13)
[2019-03-12] MEDS: Acetaminophen 500 MG TAB PO PRN (01:34)
[2019-03-12 05:17] LABS: Anion Gap 14 mmol/L (10-20); BUN (Urea Nitrogen) 27 mg/dL (8.4-25.7); Calc. Creatinine Clearance 37 mL/min (70-130); Calcium 9.3 mg/dL (7.8-10.44); Carbon Dioxide 19 mmol/L (23-31); Chloride 102 mmol/L (98-107); Estimated GFR-MDRD 39; Glucose 87 mg/dL (83-110); Potassium 3.9 mmol/L (3.5-5.1); Sodium 131 mmol/L (136-145)
[2019-03-12 05:46] LABS: Anisocytosis SLIGHT = 6-15 cells (100X) (0-5/hpf); Band 4 % (5-11); Eosinophils 1 % (0-10); Hemoglobin 8.5 g/dL (14.0-18.0); Large Platelets SLIGHT; Lymphocytes 24 % (21-51); MDiff Complete? YES; Mean Corpuscular HGB CONC 31.4 g/dL (32.0-36.0); Mean Corpuscular Hemoglobin 27.3 pg (27.0-31.0); Mean Corpuscular Volume 87.1 fL (78.0-98.0); Mean Platelet Volume 10.5 fL (7.4-10.4); Monocytes 6 % (0-10); Neutrophil 63 % (42-75); Ovalocytes SLIGHT = 2-5 cells (100X) (0-1/hpf); Platelet Count 48 thou/uL (130-400); Platelet Morphology Comment Appears Decreased; RBC Distribution Width 15.3 % (11.5-14.5); Toxic Granulation SLIGHT; White Blood Cell (WBC) Count 2.5 thou/uL (4.8-10.8)
[2019-03-12] MEDS: Dextrose 5 %-0.45 % NaCl 1,000 ML IV SCH ×2 (05:58→17:43)
[2019-03-12] MEDS: Saccharomyces boulardii 250 MG CAP PO SCH ×2 (09:41→20:42)
[2019-03-12] MEDS: Potassium Chloride 10 MEQ TAB PO SCH (09:42)
[2019-03-12] MEDS: Fluconazole 100 MG TAB PO SCH (09:43)
[2019-03-12] MEDS: Docusate 100 MG CAP PO SCH ×2 (09:46→20:42)
[2019-03-12] MEDS: traMADol HCl 50 MG TAB PO PRN ×2 (10:38→20:41)
[2019-03-12] MEDS: Megestrol Acetate 400 MG/10 ML UDCUP PO SCH (10:45)
[2019-03-12] MEDS: metFORMIN 500 MG TAB PO SCH (17:44)
[2019-03-12] MEDS: Ondansetron ODT 4 MG TAB PO PRN (20:42)
[2019-03-13] MEDS: Dextrose 5 %-0.45 % NaCl 1,000 ML IV SCH ×2 (04:35→14:47)
[2019-03-13] MEDS: traMADol HCl 50 MG TAB PO PRN ×2 (04:58→14:58)
[2019-03-13 05:20] LABS: Anion Gap 11 mmol/L (10-20); BUN (Urea Nitrogen) 25 mg/dL (8.4-25.7); Calc. Creatinine Clearance 38 mL/min (70-130); Calcium 9.4 mg/dL (7.8-10.44); Carbon Dioxide 22 mmol/L (23-31); Chloride 104 mmol/L (98-107); Estimated GFR-MDRD 39; Glucose 95 mg/dL (83-110); Potassium 3.7 mmol/L (3.5-5.1); Sodium 133 mmol/L (136-145)
[2019-03-13 05:44] LABS: Anisocytosis SLIGHT = 6-15 cells (100X) (0-5/hpf); Band 4 % (5-11); Eosinophils 1 % (0-10); Hemoglobin 8.2 g/dL (14.0-18.0); Lymphocytes 27 % (21-51); MDiff Complete? YES; Mean Corpuscular HGB CONC 32.3 g/dL (32.0-36.0); Mean Corpuscular Hemoglobin 27.9 pg (27.0-31.0); Mean Corpuscular Volume 86.4 fL (78.0-98.0); Mean Platelet Volume 9.7 fL (7.4-10.4); Monocytes 4 % (0-10); Neutrophil 62 % (42-75); Ovalocytes SLIGHT = 2-5 cells (100X) (0-1/hpf); Platelet Count 53 thou/uL (130-400); Platelet Morphology Comment Appears Decreased; RBC Distribution Width 15.4 % (11.5-14.5); Red Blood Cell (RBC) Count 2.95 mill/uL (4.70-6.10); White Blood Cell (WBC) Count 2.4 thou/uL (4.8-10.8)
[2019-03-13] MEDS: Megestrol Acetate 400 MG/10 ML UDCUP PO SCH (08:34)
[2019-03-13] MEDS: Fluconazole 100 MG TAB PO SCH (08:36)
[2019-03-13] MEDS: Potassium Chloride 10 MEQ TAB PO SCH (08:37)
[2019-03-13] MEDS: Docusate 100 MG CAP PO SCH ×2 (08:37→20:51)
[2019-03-13] MEDS: Saccharomyces boulardii 250 MG CAP PO SCH ×2 (08:37→20:51)
[2019-03-13] MEDS: Ondansetron ODT 4 MG TAB PO PRN ×2 (14:58→20:57)
[2019-03-13] MEDS: metFORMIN 500 MG TAB PO SCH (18:25)
[2019-03-14] MEDS: Dextrose 5 %-0.45 % NaCl 1,000 ML IV SCH ×3 (00:49→19:09)
[2019-03-14] MEDS: Docusate 100 MG CAP PO SCH ×2 (09:18→20:12)
[2019-03-14] MEDS: Fluconazole 100 MG TAB PO SCH (09:18)
[2019-03-14] MEDS: Saccharomyces boulardii 250 MG CAP PO SCH ×2 (09:19→20:13)
[2019-03-14] MEDS: Potassium Chloride 10 MEQ TAB PO SCH (09:19)
[2019-03-14] MEDS: Megestrol Acetate 400 MG/10 ML UDCUP PO SCH (09:20)
[2019-03-14] MEDS: traMADol HCl 50 MG TAB PO PRN ×2 (14:10→20:13)
[2019-03-14] MEDS: metFORMIN 500 MG TAB PO SCH (17:35)
[2019-03-15] MEDS: Dextrose 5 %-0.45 % NaCl 1,000 ML IV SCH ×2 (05:00→14:59)
[2019-03-15 05:17] LABS: ALT (SGPT) 7 U/L (8-55); AST (SGOT) 10 U/L (5-34); Albumin 2.1 g/dL (3.4-4.8); Alkaline Phosphatase 113 U/L (40-110); Anion Gap 12 mmol/L (10-20); BUN (Urea Nitrogen) 19 mg/dL (8.4-25.7); Bilirubin, Total 0.8 mg/dL (0.2-1.2); Calc. Creatinine Clearance 40 mL/min (70-130); Carbon Dioxide 20 mmol/L (23-31); Chloride 106 mmol/L (98-107); Estimated GFR-MDRD 42; Globulin 1.5 g/dL (2.4-3.5); Glucose 106 mg/dL (83-110); Potassium 3.6 mmol/L (3.5-5.1); Protein, Total 3.6 g/dL (5.8-8.1); Sodium 134 mmol/L (136-145)
[2019-03-15 05:30] LABS: Anisocytosis SLIGHT = 6-15 cells (100X) (0-5/hpf); Band 5 % (5-11); Eosinophils 1 % (0-10); Hemoglobin 8.4 g/dL (14.0-18.0); Lymphocytes 26 % (21-51); MDiff Complete? YES; Mean Corpuscular HGB CONC 33.4 g/dL (32.0-36.0); Mean Corpuscular Hemoglobin 29.3 pg (27.0-31.0); Mean Corpuscular Volume 87.9 fL (78.0-98.0); Mean Platelet Volume 10.3 fL (7.4-10.4); Monocytes 3 % (0-10); Neutrophil 62 % (42-75); Platelet Count 59 thou/uL (130-400); Platelet Morphology Comment Appears Decreased; RBC Distribution Width 16.1 % (11.5-14.5); Red Blood Cell (RBC) Count 2.86 mill/uL (4.70-6.10)
[2019-03-15] MEDS: traMADol HCl 50 MG TAB PO PRN ×2 (05:53→12:21)
[2019-03-15] MEDS: Saccharomyces boulardii 250 MG CAP PO SCH ×2 (09:38→20:45)
[2019-03-15] MEDS: Potassium Chloride 10 MEQ TAB PO SCH (09:38)
[2019-03-15] MEDS: Docusate 100 MG CAP PO SCH ×2 (09:38→20:45)
[2019-03-15] MEDS: Fluconazole 100 MG TAB PO SCH (09:39)
[2019-03-15] MEDS: Megestrol Acetate 400 MG/10 ML UDCUP PO SCH (09:39)
[2019-03-15] MEDS: Acetaminophen 500 MG TAB PO PRN (09:39)
[2019-03-15] MEDS: metFORMIN 500 MG TAB PO SCH (17:01)
[2019-03-16] MEDS: Dextrose 5 %-0.45 % NaCl 1,000 ML IV SCH ×2 (00:37→10:08)
[2019-03-16 05:18] LABS: Anion Gap 11 mmol/L (10-20); BUN (Urea Nitrogen) 17 mg/dL (8.4-25.7); CRP (Inflammatory) 3.91 mg/dL (= or < 0.5); Calc. Creatinine Clearance 42 mL/min (70-130); Carbon Dioxide 21 mmol/L (23-31); Chloride 106 mmol/L (98-107); Estimated GFR-MDRD 44; Glucose 97 mg/dL (83-110); Potassium 3.5 mmol/L (3.5-5.1); Sodium 134 mmol/L (136-145)
[2019-03-16 05:53] LABS: Anisocytosis SLIGHT = 6-15 cells (100X) (0-5/hpf); Band 6 % (5-11); Eosinophils 3 % (0-10); Hemoglobin 8.8 g/dL (14.0-18.0); Hypochromia SLIGHT = 6-15 cells (100X) (0-5/hpf); Lymphocytes 25 % (21-51); MDiff Complete? YES; Mean Corpuscular HGB CONC 33.3 g/dL (32.0-36.0); Mean Corpuscular Hemoglobin 28.6 pg (27.0-31.0); Mean Platelet Volume 10.1 fL (7.4-10.4); Monocytes 5 % (0-10); Neutrophil 58 % (42-75); Ovalocytes SLIGHT = 2-5 cells (100X) (0-1/hpf); Platelet Count 55 thou/uL (130-400); Platelet Morphology Comment Appears Decreased; RBC Distribution Width 15.6 % (11.5-14.5); Red Blood Cell (RBC) Count 3.08 mill/uL (4.70-6.10); Toxic Granulation SLIGHT; White Blood Cell (WBC) Count 2.1 thou/uL (4.8-10.8)
--- NOTE | 2019-03-16 07:36 | RAD ---
PORTABLE CHEST: DATE: 03/16/2019. COMPARISON: Comparison is made with the 03/05 study. FINDINGS: This portable film at 0537 shows worsening of the appearance of the chest. There is now pleural flui d on the left than before. Additionally, there is vascular congestion and edema. A small amount of fluid is seen on the right. The findings are in keeping with CHF; however, there is presumably under lying infiltrate on the left of pneumonia as well. IMPRESSION: Interval worsening of the chest with increasing congestive changes and increasing pleural fluid on th e right. CODE T POS: HOME
[2019-03-16] MEDS: Saccharomyces boulardii 250 MG CAP PO SCH (08:40)
[2019-03-16] MEDS: Fluconazole 100 MG TAB PO SCH (08:40)
[2019-03-16] MEDS: Docusate 100 MG CAP PO SCH (08:40)
[2019-03-16] MEDS: Potassium Chloride 10 MEQ TAB PO SCH (08:41)
[2019-03-16] MEDS: Ondansetron ODT 4 MG TAB PO PRN (08:58)
[2019-03-16] MEDS: traMADol HCl 50 MG TAB PO PRN ×2 (08:58→20:56)
[2019-03-16] MEDS ORDERED: Megestrol Acetate 400 MG/10 ML UDCUP PO SCH (09:00)
[2019-03-16] MEDS: Acetaminophen 500 MG TAB PO PRN (13:32)
[2019-03-16] MEDS: metFORMIN 500 MG TAB PO SCH (17:40)
[2019-03-16] MEDS ORDERED: Lorazepam 2 MG/ML VIAL SLOW IVP PRN (18:39)
[2019-03-16] MEDS ORDERED: Ondansetron PF 4 MG/2 ML Vial IVP PRN (18:39)
[2019-03-16] MEDS ORDERED: Morphine IR Tab 15 MG TAB PO PRN (18:39)
[2019-03-16] MEDS ORDERED: Milk Of Magnesia 30 ML UDCUP PO PRN (18:39)
[2019-03-16] MEDS ORDERED: Haloperidol Lactate 5 MG/ML VIAL SLOW IVP PRN (18:39)
[2019-03-16] MEDS ORDERED: Senokot 8.6 MG TAB PO PRN (18:39)
[2019-03-16] MEDS ORDERED: Scopolamine 1.5 mg/72 hour Patch TD PRN (18:39)
[2019-03-16] MEDS ORDERED: Acetaminophen 325 MG TAB PO PRN (18:39)
[2019-03-16] MEDS ORDERED: diphenhydrAMINE 50 MG/ML VIAL IVP PRN (18:39)
[2019-03-16] MEDS: HYDROcodone/Acetaminophen 10/325 mg Tablet PO PRN (23:04)
[2019-03-17] MEDS: HYDROcodone/Acetaminophen 10/325 mg Tablet PO PRN ×3 (06:25→22:46)
[2019-03-17] MEDS ORDERED: Ibrutinib [Imbruvica] 420 MG PO SCH (09:00)
[2019-03-18] MEDS: HYDROcodone/Acetaminophen 10/325 mg Tablet PO PRN (08:43)
[2019-03-18] MEDS: Morphine 10 MG/0.5 ML ORAL SYRINGE SL PRN (16:12)
[2019-03-19] MEDS: HYDROcodone/Acetaminophen 10/325 mg Tablet PO PRN ×2 (10:09→17:21)
[2019-03-19] MEDS: Morphine 10 MG/0.5 ML ORAL SYRINGE SL PRN ×3 (13:32→22:44)
[2019-03-20] MEDS: Morphine 10 MG/0.5 ML ORAL SYRINGE SL PRN ×4 (02:59→22:33)
[2019-03-20] MEDS: Acetaminophen 650 MG Suppository PR PRN ×2 (17:39→22:35)
[2019-03-20 18:07] VITALS: BP 106/59; TEMP 101.3
[2019-03-20] MEDS ORDERED: diphenhydrAMINE 50 MG/ML VIAL ONE (22:15)
--- NOTE | 2019-03-22 01:59 | DIS ---
DATE OF ADMISSION: 03/01/2019 DATE OF DISCHARGE: 03/21/2019 summary. DATE OF : 03/21/2019. TIME OF : 0534 hours. SUMMARY OF STAY: A 73-year-old male with a history of hypertension; type 2 diabetes mellitus; non-Hodgkin lymphoma; chronic leukopenia; chronic kidney disease, stage 3; and anemia of chronic disease; recent enterococcus iliopsoas abscess, which was [facility] with [facility]illin [facility], who was then readmitted for dyspnea, hypoxia, and chronic dysphagia. He was found to have a healthcare- acquired pneumonia, a large left pleural effusion, hypoxic respiratory failure, and a distal esophageal ring. He also had cryptococcus fungemia. He was evaluated by Infectious Disease and underwent a thoracentesis with removal of 1.5 L of straw-colored fluid on February 19. During this admission as well, he was evaluated by the Gastroenterology who performed an EGD with esophageal dilatation on February 22. He received meropenem throughout his stay for approximately 8 days. He was recommended antifungal treatment, consisting of AmBisome [address] Ojeda for approximately 9 days. He transitioned to our facility at [facility] for this aforementioned treatment as well as plan for participation with physical therapy and occupational therapy. His admission prior to transition here was at [facility] from February 18 through March 01. The patient's plan of care was resumed as advised. Unfortunately, he continued to decline. He notably had severe protein calorie malnutrition and had refused PEG placement. Due to his progressive decline, the patient transitioned to palliative care. He stopped intake altogether within the last few days and early this morning with time of noted to be at 0534 hours. Job ID: [id number] [facility]
== END 2019-03-21 10:15 | disposition expired | DRG 867 ==
LOC: BURMED 15:10
PROVIDERS: ADMIT Family Medicine; ATTEND Family Medicine
DX: B49 Unspecified mycosis (principal); E43 Unspecified severe protein-calorie malnutrition; K68.12 Psoas muscle abscess; J18.9 Pneumonia, unspecified organism; J96.01 Acute respiratory failure with hypoxia; C85.90 Non-Hodgkin lymphoma, unspecified, unspecified site; L02.214 Cutaneous abscess of groin; J90 Pleural effusion, not elsewhere classified; Z68.1 Body mass index [BMI] 19.9 or less, adult; D61.818 Other pancytopenia; Z79.899 Other long term (current) drug therapy; B45.8 Other forms of cryptococcosis; Z51.5 Encounter for palliative care; Z66 Do not resuscitate; I12.9 Hypertensive chronic kidney disease with stage 1 through stage 4 chronic kidney disease, or unspecified chronic kidney disease; N18.3 Chronic kidney disease, stage 3 (moderate); D63.1 Anemia in chronic kidney disease; E11.22 Type 2 diabetes mellitus with diabetic chronic kidney disease; K44.9 Diaphragmatic hernia without obstruction or gangrene; R40.0 Somnolence; D69.6 Thrombocytopenia, unspecified; R13.10 Dysphagia, unspecified; Z88.2 Allergy status to sulfonamides; Z79.84 Long term (current) use of oral hypoglycemic drugs
CPT/HCPCS: 36415; 36416; 71045; 80048; 80053; 84134; 85025; 86140; 87389; J0289; J1200; J7070; Q0162